=== PATIENT | female | born 1965 | race Caucasian/White ===

== ENCOUNTER 2017-06-20 15:51 | Observation (INO) ==
[2017-06-20] MEDS ORDERED: Naloxone 0.4 MG/ML INJ IVP PRN (20:32)
--- NOTE | 2017-06-20 20:45 | Internal Med History&Physical ---
<Dimitri Ledesma - Last Filed: 06/20/17 21:13> Date of Encounter: 06/20/17 Time of Encounter: 20:45 Assessment and Plan (1) Fecal impaction in rectum Current visit: Yes Status: Acute Fecal impaction per rectum on [facility] CT. Clear liquid diet. Enema TID, Golytely. While morphine administration may cause reduced gastric motility, will treat pt' s symptomatic pain along with fecal disimpaction regimen. (2) Hx of chronic kidney disease Current visit: Yes Status: Acute Hx of recurrent RENÉE, following Dr. Sullivan Current GFR >60, Creat .79 (3) HTN (hypertension) Current visit: Yes Status: Acute Continue home meds. Qualifiers: Hypertension type: unspecified Qualified Code(s): I10 - Essential (primary ) hypertension (4) Chronic asthma not affecting current episode of care Current visit: Yes Status: Acute Continue home meds. No dyspnea or symptoms this admission. (5) Depression Current visit: Yes Status: Acute On Buproprion, will continue. Qualifiers: Depression Type: unspecified Qualified Code(s): F32.9 - Major depressive disorder, single episode, unspecified Internal Medicine - H&P: HPI Admitted From: Hospital to Hospital Transfer Plans for Post Hospital Care: Home History of present illness: Ms. Price is a 51 year old female presenting as a hospital transfer from [facility] ED for worsening abdominal pain. Patient reports not having had a bowel movement in 3-4 weeks. Reports 2 episodes nausea/vomiting in the past day associated with the abdominal pain. CT in [facility] demonstrates no SBO, large fecal impaction with distention of the rectum. Pt received one enema in [facility] ED prior to transfer. Vital signs stable, no anemia on CBC, normal kidney function on BMP. Past Med Surg Social Fam HX - Past Medical History Medical history: hypertension, renal disease Psychiatric history: anxiety, depression - Past Surgical History Surgical History: appendectomy, breast surgery, , hysterectomy - Social History Smoking Status: Never smoker Smokeless Tobacco Status: No Alcohol use: none Drug use: none Internal Medicine - H&P: Meds Omeprazole [PriLOSEC] 40 mg PO BID 06/20/17 [History] Tramadol HCl [Ultram] 50 mg PO TID PRN 06/20/17 [History] diazePAM [Valium] 5 mg PO TID 06/20/17 [History] 3 Allergy/AdvReac Type Severity Reaction Status Date / Time Penicillins Allergy Hives Verified 05/25/17 12:03 Sulfa (Sulfonamide Allergy Hives Verified 05/25/17 12:03 Antibiotics) All Systems PM: A 10-system review of systems was performed and is negative for pertinent findings except as documented above in the HPI. - Constitutional Vitals: Temp Pulse Resp BP Pulse Ox 98.5 F 69 14 138/81 96 06/20/17 20:06 06/20/17 20:06 06/20/17 20:06 06/20/17 20:06 06/20/17 20:29 General appearance: Present: A&O X 3, no acute distress - Respiratory Respiratory exam: Present: CTAB - Cardiovascular Cardiovascular exam: Present: RRR, +S1, +S2 - Neurological Exam Neurological exam: Present: no focal deficits - Psychiatric Psychiatric exam: Present: normal affect, normal mood - Skin Skin exam: Present: normal color <Aldo Alexander H - Last Filed: 06/20/17 21:24> Date of Encounter: 06/20/17 Internal Medicine - H&P: HPI History of present illness: Ms. Price is a 51 year old female All Systems PM: A 10-system review of systems was performed and is negative for pertinent findings except as documented above in the HPI. - Constitutional Vitals: Temp Pulse Resp BP Pulse Ox 98.5 F 69 14 138/81 96 06/20/17 20:06 06/20/17 20:06 06/20/17 20:06 06/20/17 20:06 06/20/17 20:29 - Attending Attestation severe constipation tap water enemas TID and Golytely CKD3 time spent : 40 min I examined this patient and my medical decision-making was reviewed with the Resident Physician. I agree with the documented findings, disposition and treatment plan as described except to the extent set forth below.
[2017-06-20] MEDS ORDERED: SODIUM CHLORIDE/NAHCO3/KCL/PEG 4,000 ML SOLN.RECON PO ONE ×2 (20:46→21:10)
[2017-06-20] MEDS: diazePAM 5 MG TABLET PO SCH (22:26)
[2017-06-20] MEDS: *HR* Morphine 2 MG/ML SYRINGE IVP PRN (22:27)
[2017-06-20] MEDS: Acetaminophen 325 MG TABLET PO PRN (23:57)
[2017-06-21 05:26] LABS: Basophils % 0.6 %; Eosinophils # 0.1 K/mcL (0.0-0.6); Eosinophils % 1.8 %; Hematocrit 33.3 % (35.3-44.9); Hemoglobin 10.1 g/dL (11.5-15.4); Immature Granulocytes % 0.2 % (0-4); Lymphocytes # 2.2 K/mcL (0.6-4.6); Lymphocytes % 43.8 %; Mean Corpuscular HGB Conc 30.3 g/dL (31.6-35.5); Mean Corpuscular Hemoglobin 25.7 pg (28.0-33.3); Mean Corpuscular Volume 84.7 fL (83.0-100.0); Mean Platelet Volume 8.9 fL (9.4-12.4); Monocytes # 0.5 K/mcL (0.0-1.3); Monocytes % 9.4 %; Neutrophils # 2.2 K/mcL (1.6-8.9); Platelet Count 348 K/mcL (140-400); Red Blood Count 3.93 M/mcL (3.82-4.97); Red Cell Distribution Width 15.9 % (11.5-14.5); Segmented Neutrophils % 44.2 %
[2017-06-21] MEDS: *HR* Morphine 2 MG/ML SYRINGE IVP PRN ×2 (05:34→20:12)
[2017-06-21 05:35] LABS: BUN/Creatinine Ratio 14 (6-26); Blood Urea Nitrogen 10 mg/dL (6-20); Calcium 8.6 mg/dL (8.6-10.3); Carbon Dioxide 25 mEq/L (23-29); Chloride 109 mEq/L (98-107); Glucose 80 mg/dL (70-105); Osmolality,Calculated 290 (280-300); Potassium 3.7 mEq/L (3.5-5.1); Sodium 141 mEq/L (136-145); eGFR For African Americans > 60 (> 60); eGFR For Non-African Americans > 60 (> 60)
[2017-06-21] MEDS ORDERED: *HR* HYDROmorphone 2 MG/ML SYRINGE ONE (05:42)
[2017-06-21] MEDS: Acetaminophen 325 MG TABLET PO PRN (06:07)
[2017-06-21] MEDS: diazePAM 5 MG TABLET PO SCH ×3 (10:04→22:00)
--- NOTE | 2017-06-21 10:49 | Internal Med Progress Note ---
Date of Encounter: 06/21/17 Time of Encounter: 10:44 - Assessment and plan (1) Fecal impaction in rectum Current Visit: Yes Status: Acute Assessment and plan: presented to outside hospital with abdominal pain and no BM for 3-[address] [facility] shows stool throughout the colon with probable fecal impaction. Patient reports history of constipation, not on opiates at home. Discussed with pharmacy and tramadol is only a partial agonist therefore methotrexate own likely would not be effective. Manual dis-impaction attempted multiple times with no success. Continue GoLYTELY, and mag citrate to help with reabsorption in the colon. Strongly encouraged ambulation. Minimize opiates. Clear liquid diet. (2) Hepatic steatosis Current Visit: Yes Status: Acute Assessment and plan: [facility] CT with hepatic steatosis, and possible cholecystitis. No known liver disease. LFTs, lipase, RUQ US pending (3) Hypothyroidism (acquired) Current Visit: Yes Status: Acute Assessment and plan: per hx. Cont home levothyroxine (4) Depression Current Visit: Yes Status: Acute Assessment and plan: per hx. continue home antidepressants Qualifiers: Depression Type: unspecified Qualified Code(s): F32.9 - Major depressive disorder, single episode, unspecified (5) Anemia Current Visit: Yes Status: Acute Assessment and plan: per hx. Hgb 10.1 on arrival, baseline appears to be between 9-11. No active bleeding. Intermittently monitor H&H. Qualifiers: Anemia type: unspecified type Qualified Code(s): D64.9 - Anemia, unspecified (6) DVT prophylaxis Current Visit: Yes Status: Acute Assessment and plan: heparin - Subjective Interval history: Seen and examined at bedside. Patient is new to me, information obtained from chart review and patient report. Says she feels a little better in regards to her abdominal pain. She still has not had a bowel movement. Patient reports last BM 3-4 weeks ago. Says she gets constipated 4 weeks that time at home however she is usually able to have a bowel movement with stool softener and laxatives. Not on opiates at home. She still working on [employer]. - Constitutional Vitals: Temp Pulse Resp BP Pulse Ox 98.1 F 63 16 95/60 99 06/21/17 08:22 06/21/17 08:22 06/21/17 08:22 06/21/17 08:22 06/21/17 08:22 General appearance: Present: A&O X 3, no acute distress - Head Head exam: Present: atraumatic, normocephalic - Eye Eye exam: Present: PERRL, conjuntiva pink, sclera anicteric Pupils: Present: PERRL - Neck Neck exam general surgery: Present: supple, trachea midline. Absent: lymphadenopathy - Respiratory Respiratory exam: Present: CTAB. Absent: accessory muscle use, rales, rhonchi, wheezes - Cardiovascular Cardiovascular exam: Present: RRR, +S1, +S2. Absent: diastolic murmur, gallop, rubs, systolic murmur - GI/Abdominal GI/Abdominal exam: Present: normal bowel sounds, soft, no peritoneal signs. Absent: distended, tenderness - Extremities Exam Extremities exam: Present: warm, radial pulses palpable and symmetrical. Absent : calf tenderness, cyanotic, pedal edema - Neurological Exam Neurological exam: Present: CN II-XII intact, oriented X3, no focal deficits. Absent: pronater drift, facial droop, speech deficit - Skin Skin exam: Present: dry, intact Internal Medicine: Result - Labs CBC & Chem 7: 06/21/17 05:04 06/21/17 05:04 Labs: Short CBC 06/21/17 Range/Units 05:04 WBC 5.0 (4.3-11.1) K/mcL Hgb 10.1 L (11.5-15.4) g/dL Hct 33.3 L (35.3-44.9) % Plt Count 348 (140-400) K/mcL Neutrophils # 2.2 (1.6-8.9) K/mcL BMP 06/21/17 05:04 Sodium 141 Potassium 3.7 Chloride 109 H Carbon Dioxide 25 BUN 10 Creatinine 0.73 Glucose 80 Calcium 8.6 Consult Discharge Plan - Plan Referrals: Daisy Dexter CNP [Primary Care Provider] -
[2017-06-21 11:11] LABS: Alanine Aminotransferase 37 Units/L (7-52); Albumin/Globulin Ratio 1.3 (1.1-2.2); Alkaline Phosphatase 45 Units/L (34-104); Aspartate Amino Transferase 64 Units/L (13-39); Bilirubin,Indirect 0.4 mg/dL (0.0-1.2); Bilirubin,Total 0.4 mg/dL (0.3-1.0); Globulin 2.4 g/dL (2.4-3.5); Lipase 13 Units/L (11-82); Total Protein 5.4 g/dL (6.4-8.9)
[2017-06-21] MEDS: Ondansetron ODT 4 MG TAB.RAPDIS SL PRN (11:37)
[2017-06-21] MEDS: *HR* Heparin 5,000 UNIT/ML VIAL SQ SCH ×2 (14:17→22:00)
[2017-06-21] MEDS ORDERED: Polyethylene Glycol 3350 255 GM POWDER PO ONE (17:42)
[2017-06-21] MEDS: BuPROPion SR (12 HR) 150 MG TABLET PO SCH (22:00)
[2017-06-21] MEDS ORDERED: GI Cocktail 40 ML EACH PO ONE (22:52)
[2017-06-22] MEDS: *HR* Morphine 2 MG/ML SYRINGE IVP PRN ×3 (00:47→18:47)
[2017-06-22] MEDS ORDERED: *HR* Promethazine 25 MG/ML VIAL IVP ONE (01:04)
[2017-06-22] MEDS: Levothyroxine 25 MCG TABLET PO SCH (05:48)
[2017-06-22] MEDS: *HR* Heparin 5,000 UNIT/ML VIAL SQ SCH ×3 (06:23→23:06)
[2017-06-22 06:48] LABS: Hematocrit 35.5 % (35.3-44.9); Mean Corpuscular Volume 83.9 fL (83.0-100.0); Platelet Count 351 K/mcL (140-400); Red Blood Count 4.23 M/mcL (3.82-4.97)
[2017-06-22 07:38] LABS: BUN/Creatinine Ratio 13 (6-26); Blood Urea Nitrogen 9 mg/dL (6-20); Calcium 8.8 mg/dL (8.6-10.3); Carbon Dioxide 23 mEq/L (23-29); Chloride 107 mEq/L (98-107); Glucose 89 mg/dL (70-105); Osmolality,Calculated 288 (280-300); Potassium 4.2 mEq/L (3.5-5.1); Sodium 140 mEq/L (136-145); eGFR For African Americans > 60 (> 60); eGFR For Non-African Americans > 60 (> 60)
--- NOTE | 2017-06-22 08:35 | Internal Med Progress Note ---
Date of Encounter: 06/22/17 Time of Encounter: 08:30 - Assessment and plan (1) Fecal impaction in rectum Current Visit: Yes Status: Acute Assessment and plan: Multiple disimpaction methods have not worked. Seems to have a chronic issue. We will consult GI. I will add magnesium citrate and try Dulcolax suppository today. (2) Hypothyroidism (acquired) Current Visit: Yes Status: Acute Assessment and plan: per hx. Cont home levothyroxine (3) Hepatic steatosis Current Visit: Yes Status: Acute Assessment and plan: [facility] with hepatic steatosis, and possible cholecystitis. No known liver disease. LFTs, lipase, RUQ US pending (4) DVT prophylaxis Current Visit: Yes Status: Acute Assessment and plan: heparin - Subjective Interval history: No acute events. The patient continues have severe constipation. She was only able to have a very small/tiny piece of stool last night. She is having significant rectal pain. She says she usually goes about 2-4 weeks without a bowel movement like that all of her life. Her mother used to be like as well. - Constitutional Vitals: Temp Pulse Resp BP Pulse Ox 98.0 F 72 16 108/67 97 06/22/17 07:35 06/22/17 07:35 06/22/17 07:35 06/22/17 07:35 06/22/17 07:35 General appearance: Present: A&O X 3, no acute distress Exam: GEN: NAD CVS: RRR. S1, S2, No m/r/g RESP: CTAB ABD: Soft, NT, ND, hypoactive bowel sounds EXT: No edema. 2+ DP. No rashes NEURO: Nonfocal Internal Medicine: Result - Labs CBC & Chem 7: 06/22/17 06:35 06/22/17 06:35 Labs: Short CBC 06/22/17 Range/Units 06:35 WBC 6.5 (4.3-11.1) K/mcL Hgb 11.0 L (11.5-15.4) g/dL Hct 35.5 (35.3-44.9) % Plt Count 351 (140-400) K/mcL BMP 06/21/17 06/22/17 05:04 06:35 Sodium 141 140 Potassium 3.7 4.2 Chloride 109 H 107 Carbon Dioxide 25 23 BUN 10 9 Creatinine 0.73 0.68 Glucose 80 89 Calcium 8.6 8.8 Liver Function 06/21/17 Range/Units 05:04 Total Bilirubin 0.4 (0.3-1.0) mg/dL Direct Bilirubin 0.0 (0.0-0.2) mg/dL AST 64 H (13-39) Units/L ALT 37 (7-52) Units/L Alkaline Phosphatase 45 (34-104) Units/L Albumin 3.0 L (3.5-5.7) g/dL Consult Discharge Plan - Plan Referrals: Daisy Dexter, COURTNEY [Primary Care Provider] -
[2017-06-22] MEDS: Ondansetron ODT 4 MG TAB.RAPDIS SL PRN (09:28)
[2017-06-22] MEDS: diazePAM 5 MG TABLET PO SCH ×3 (09:29→22:07)
--- NOTE | 2017-06-22 11:06 | Internal Med Progress Note ---
Date of Encounter: 06/22/17 Time of Encounter: 11:00 - Assessment and plan (1) Fecal impaction in rectum Current Visit: Yes Status: Acute Assessment and plan: Multiple disimpaction methods have not worked. She is not interested in any attempts with manual disimpaction. She is having significant rectal pain. Seems to have a chronic issue. We will consult surgery as GI is not available. I was hoping would be able to disimpact the patient under anesthesia possibly in the scope suite. I will add magnesium citrate and try Dulcolax suppository today but she seems to have given up on trying anything orally. (2) Hypothyroidism (acquired) Current Visit: Yes Status: Acute (3) Hepatic steatosis Current Visit: Yes Status: Acute (4) DVT prophylaxis Current Visit: Yes Status: Acute - Subjective Interval history: No acute events. The patient continues have severe constipation. She was only able to have a very small/tiny piece of stool last night. She is having significant rectal pain. She is not interested in any attempts with manual disimpaction. She says she usually goes about 2-4 weeks without a bowel movement like that all of her life. Her mother used to be like as well. - Constitutional Vitals: Temp Pulse Resp BP Pulse Ox 98.0 F 72 16 108/67 97 06/22/17 07:35 06/22/17 07:35 06/22/17 07:35 06/22/17 07:35 06/22/17 07:35 General appearance: Present: A&O X 3, no acute distress Internal Medicine: Result - Labs CBC & Chem 7: 06/22/17 06:35 06/22/17 06:35 Labs: Short CBC 06/22/17 Range/Units 06:35 WBC 6.5 (4.3-11.1) K/mcL Hgb 11.0 L (11.5-15.4) g/dL Hct 35.5 (35.3-44.9) % Plt Count 351 (140-400) K/mcL BMP 06/22/17 06:35 Sodium 140 Potassium 4.2 Chloride 107 Carbon Dioxide 23 BUN 9 Creatinine 0.68 Glucose 89 Calcium 8.8 Liver Function 06/21/17 Range/Units 05:04 Total Bilirubin 0.4 (0.3-1.0) mg/dL Direct Bilirubin 0.0 (0.0-0.2) mg/dL AST 64 H (13-39) Units/L ALT 37 (7-52) Units/L Alkaline Phosphatase 45 (34-104) Units/L Albumin 3.0 L (3.5-5.7) g/dL Consult Discharge Plan - Plan Referrals: Daisy Dexter CNP [Primary Care Provider] -
[2017-06-22] MEDS: Bisacodyl 10 MG RECTAL SUPPOSITORY RC SCH ×2 (12:00→22:07)
[2017-06-22] MEDS: BuPROPion SR (12 HR) 150 MG TABLET PO SCH ×2 (12:00→22:07)
--- NOTE | 2017-06-22 12:57 | General Surgery Consult Note ---
<Jesse Dawson - Last Filed: 06/22/17 12:52> Date of Encounter: 06/22/17 Time of Encounter: 12:52 Assessment and Plan (1) Functional constipation Current Visit: Yes Status: Acute Functional constipation vs Rx induced constipation vs previously undiagnosed Hirschsprung disease. 4 week history of constipation per patient. Patient is currently stable. per chart review, patient is not interested in digital disimpactment. Will attempt medical treatment first, if mg citrate and sitz bath fails, recommend transfer to ICU for neostigmine administration. If all attempts fail, will consider sphincterotomy. - recommend GI consult - Mg Citrate for BM + Sitz Bath for relaxation of internal anal sphincter ordered - encouraged patient to be more compliant with recommendations (2) Anal fissure Current Visit: Yes Status: Acute On physical exam, patient had severe pain during digital rectal exam. Patient had hard compacted stools in rectal vault. - sitz baths History of Present Illness Consult date: 06/22/17 Reason for consult: other (chronic constipation) Requesting physician: Nixon Romero History of present illness: 51 year old female presents with chronic constipation. Patient wa recently evaluated at [facility] ED and then transferred to [place] for "second opinion". Patient states she has not had a bowel movement in 4 weeks. She feels like she needs to have a bowel movement but is unable to due to pain in her anus. Patient reports feeling nauseas and vomits following eating. She has had constipation issues since she was a child. She reports her mother had similar issues but does not know much else about her mother. per chart review CT was performed at [facility] that demonstrated no SBO, large fecal impaction with diestension of the rectum. Pt received enea in [facility] ED prior to transfer to [place]. Patient takes no medications at home for her constipation. She has a history of anxiety and depression in which she takes valium and an unknown antidepressant. Patient denies fever, chills, diarrhea or blood stools. Patient states that her stool is too large for digital disimpactment. Patient states that she has attempted miralax but is unable to finish it because she gets nauseous and vomits. Past Med Surg Social Fam HX - Past Medical History Medical history: hypertension, renal disease Psychiatric history: anxiety, depression - Past Surgical History Surgical History: appendectomy, breast surgery, , hysterectomy - Social History Smoking Status: Never smoker Smokeless Tobacco Status: No Alcohol use: none Drug use: none Medications and Allergies Omeprazole [PriLOSEC] 40 mg PO BID 06/20/17 [History] Tramadol HCl [Ultram] 50 mg PO TID PRN 06/20/17 [History] diazePAM [Valium] 5 mg PO TID 06/20/17 [History] BuPROPion SR (12 HR) [Wellbutrin SR] 150 mg PO BID 06/21/17 [History] Levothyroxine Sodium 25 mcg PO DAILY 06/21/17 [History] 3 Allergy/AdvReac Type Severity Reaction Status Date / Time Amoxicillin Allergy Rash Verified 06/21/17 08:19 cephalexin Allergy Rash Verified 06/21/17 08:19 Sulfa (Sulfonamide Allergy Hives Verified 05/25/17 12:03 Antibiotics) Penicillins AdvReac Vomiting Verified 06/21/17 08:19 Review of Systems All systems PM: A 10-system review of systems was performed and is negative for pertinent findings except as documented above in the HPI. - Constitutional as per HPI - EENT Nose, mouth and throat: as per HPI - Cardiovascular as per HPI - Respiratory as per HPI - Gastrointestinal as per HPI - Genitourinary Genitourinary: as per HPI Menstruation: as per HPI - Musculoskeletal as per HPI - Integumentary as per HPI - Neurological as per HPI - Psychiatric as per HPI - Endocrine as per HPI - Hematologic/Lymphatic as per HPI - Allergic/Immunologic as per HPI General Surgery Exam Initial Vital Signs Temp Pulse Resp BP Pulse Ox 98.3 F 79 14 159/84 97 06/20/17 17:43 06/20/17 17:43 06/20/17 17:43 06/20/17 17:43 06/20/17 17:43 - General physical appearance well developed, well nourished, no distress, moderate pain - Eyes normal ocular movement. negative: icteric - Rectum Rectum: Present: normal sphincter tone, no hemorrhoids, mass (large stool mass in rectal vault), other (possible fissure) - Integumentary Integumentary general surgery: Present: warm and dry, no abnormal pigmentation - Neurologic Present: CN 2-12 grossly intact, normal coordination, normal sensation - Psychiatric Psychiatric general surgery: Present: appropriate, oriented to person, oriented to place, oriented to time, speech is normal, memory intact Exam Initial Vital Signs Temp Pulse Resp BP Pulse Ox 98.3 F 79 14 159/84 97 06/20/17 17:43 06/20/17 17:43 06/20/17 17:43 06/20/17 17:43 06/20/17 17:43 Results - Labs 06/22/17 06:35 06/22/17 06:35 Abnormal lab results Hgb 11.0 g/dL (11.5-15.4) L 06/22/17 06:35 MCH 26.0 pg (28.0-33.3) L 06/22/17 06:35 MCHC 31.0 g/dL (31.6-35.5) L 06/22/17 06:35 RDW 16.0 % (11.5-14.5) H 06/22/17 06:35 MPV 9.0 fL (9.4-12.4) L 06/22/17 06:35 AST 64 Units/L (13-39) H 06/21/17 05:04 Serum Total Protein 5.4 g/dL (6.4-8.9) L 06/21/17 05:04 Albumin 3.0 g/dL (3.5-5.7) L 06/21/17 05:04 Diabetes panel 06/22/17 Range/Units 06:35 Sodium 140 (136-145) mEq/L Potassium 4.2 (3.5-5.1) mEq/L Chloride 107 (98-107) mEq/L Carbon Dioxide 23 (23-29) mEq/L BUN 9 (6-20) mg/dL Creatinine 0.68 (0.60-1.20) mg/dL Glucose 89 (70-105) mg/dL Calcium 8.8 (8.6-10.3) mg/dL Calcium panel 06/22/17 Range/Units 06:35 Calcium 8.8 (8.6-10.3) mg/dL Pituitary panel 06/22/17 Range/Units 06:35 Sodium 140 (136-145) mEq/L Potassium 4.2 (3.5-5.1) mEq/L Chloride 107 (98-107) mEq/L Carbon Dioxide 23 (23-29) mEq/L BUN 9 (6-20) mg/dL Creatinine 0.68 (0.60-1.20) mg/dL Glucose 89 (70-105) mg/dL Calcium 8.8 (8.6-10.3) mg/dL Adrenal panel 06/22/17 Range/Units 06:35 Sodium 140 (136-145) mEq/L Potassium 4.2 (3.5-5.1) mEq/L Chloride 107 (98-107) mEq/L Carbon Dioxide 23 (23-29) mEq/L BUN 9 (6-20) mg/dL Creatinine 0.68 (0.60-1.20) mg/dL Glucose 89 (70-105) mg/dL Calcium 8.8 (8.6-10.3) mg/dL All other labs normal. Consult Discharge Plan - Plan Referrals: Daisy Dexter CNP [Primary Care Provider] - <Corey Foote - Last Filed: 06/23/17 10:28> Date of Encounter: 06/22/17 Review of Systems All systems PM: A 10-system review of systems was performed and is negative for pertinent findings except as documented above in the HPI. General Surgery Exam Initial Vital Signs Temp Pulse Resp BP Pulse Ox 98.3 F 79 14 159/84 97 06/20/17 17:43 06/20/17 17:43 06/20/17 17:43 06/20/17 17:43 06/20/17 17:43 Exam Initial Vital Signs Temp Pulse Resp BP Pulse Ox 98.3 F 79 14 159/84 97 06/20/17 17:43 06/20/17 17:43 06/20/17 17:43 06/20/17 17:43 06/20/17 17:43 Results - Labs 06/22/17 06:35 06/22/17 06:35 Abnormal lab results Hgb 11.0 g/dL (11.5-15.4) L 06/22/17 06:35 MCH 26.0 pg (28.0-33.3) L 06/22/17 06:35 MCHC 31.0 g/dL (31.6-35.5) L 06/22/17 06:35 RDW 16.0 % (11.5-14.5) H 06/22/17 06:35 MPV 9.0 fL (9.4-12.4) L 06/22/17 06:35 AST 64 Units/L (13-39) H 06/21/17 05:04 Serum Total Protein 5.4 g/dL (6.4-8.9) L 06/21/17 05:04 Albumin 3.0 g/dL (3.5-5.7) L 06/21/17 05:04 All other labs normal. - Attending Attestation I examined this patient and my medical decision-making was reviewed with the Resident Physician. I agree with the documented findings, disposition and treatment plan as described except to the extent set forth below. The patient is seen and evaluated with the resident. She has chronic constipation. She has had constipation her entire life. She has been greater than 14 days without a bowel movement. CAT scan demonstrates a solid column of stool from the anus to the cecum. She has crampy abdominal pain and complaining bitterly of anal pain. On physical examination her rectal vault is full of soft stool. This should respond to washout therapy from above. We can use Gatorade and MiraLAX or magnesium citrate. I do not think that she will require manual disimpaction. She does have a good deal of anal pain and may have anal fissure. I have also recommended sitz bath therapy to assist with relaxation of the internal anal sphincter. We will be glad to follow along with you. She will require daily therapy with psyllium as well as milk of magnesia or magnesium citrate if she goes more than 48 hours without a bowel movement. If these measures fail neostigmine therapy may be required. Gastroenterology consultation is also recommended for chronic functional constipation Corey Foote MD FACS
[2017-06-23] MEDS: Levothyroxine 25 MCG TABLET PO SCH (06:30)
[2017-06-23] MEDS: *HR* Heparin 5,000 UNIT/ML VIAL SQ SCH ×3 (06:44→21:54)
[2017-06-23] MEDS: BuPROPion SR (12 HR) 150 MG TABLET PO SCH ×2 (09:10→21:56)
[2017-06-23] MEDS: diazePAM 5 MG TABLET PO SCH ×3 (09:11→21:56)
--- NOTE | 2017-06-23 10:23 | General Surgery Progress Note ---
<Marycruz Hartman - Last Filed: 06/23/17 11:00> Date of Encounter: 06/23/17 Time of Encounter: 09:15 - Assessment and Plan (1) Functional constipation Current Visit: Yes Status: Acute Patient reported having a bowel movement with 3 hard stools and then loose stools. Her last colonscopy was at 41yo and she is now 51 and due for another colonoscopy outpatient Patient was instructed to regularly supplement her diet with Wal-mucil to promote the formation of large soft stool. She was also advised to take regular sitz baths until resolution of her anal pain. If bowel movements do not occur within an interval of 48 hours, patient was instructed to take 2 tbsp of Magnesium citrate. Patient was advised to continue encouraging bowel movements and follow up with gastroenterology for evaluation. Patient understood and agreed to all recommendations without further questions. magnesium citrate this AM and afternoon continue sitz baths recommend gastroenterology to see patient about chronic constipation (2) Anal fissure Current Visit: Yes Status: Acute Patient was advised to take regular sitz baths and wal-mucil supplements to alleviate anal pain. Patient was instructed to strictly monitor bowel movement schedule and encouraged to take 2TBSP milk of magnesia q12h if bowel movements did not occur every 48 hours. Patient understood these recommendations and acknowledged that her symptoms would worsen if she did not ensure regular bowel movement schedule. Subjective Patient reports: no new complaints, feels better, pain is less Narrative: Patient reports initially passing three painful hard stools followed by large volumes of loose stool. She has no other complaints. Objective Vital Signs - Last 8 Hours Temp Pulse Resp BP Pulse Ox 06/23/17 08:12 97.6 F 64 18 106/67 97 06/23/17 04:24 97.8 F 66 16 103/69 98 Intake and Output 06/22/17 06/23/17 06/23/17 23:59 07:59 15:59 Intake Total 120 / 120 240 / 240 Balance 120 / 120 240 / 240 Intake: Oral 120 / 120 240 / 240 Other: Meal Dinner Breakfast Percent of Meal Consumed 50% 90% Stool Size Small Small Moderate Stool Consistency loose loose liquid liquid formed Stool Characteristics Normal for Patient Stool Color Brown Brown Brown Yellow Green # Bowel Movements 1 1 Weight 60.419 kg Patient Weight 06/23/17 23:59 Weight 60.419 kg - General physical appearance well developed, well nourished, no distress - Eyes normal ocular movement - ENT normal nares - Integumentary no abnormal pigmentation - Neurologic CN 2-12 grossly intact - Psychiatric oriented to time, oriented to person, oriented to place - Labs 06/22/17 06:35 06/22/17 06:35 Consult Discharge Plan - Plan Referrals: Daisy Dexter, [employer] [Primary Care Provider] - <Corey Foote - Last Filed: 06/23/17 14:48> Date of Encounter: 06/23/17 Objective Vital Signs - Last 8 Hours Temp Pulse Resp BP Pulse Ox 06/23/17 12:02 98.4 F 89 18 120/80 99 06/23/17 08:12 97.6 F 64 18 106/67 97 Intake and Output 06/22/17 06/23/17 06/23/17 23:59 07:59 15:59 Intake Total 120 / 120 240 / 240 Balance 120 / 120 240 / 240 Intake: Oral 120 / 120 240 / 240 Other: Meal Dinner Lunch Percent of Meal Consumed 50% 10% Stool Size Small Small Moderate Stool Consistency loose loose liquid liquid formed Stool Characteristics Normal for Patient Stool Color Brown Brown Brown Yellow Green # Bowel Movements 1 1 Weight 60.419 kg Patient Weight 06/23/17 23:59 Weight 60.419 kg - Labs 06/22/17 06:35 06/22/17 06:35 - Attending Attestation I examined this patient and my medical decision-making was reviewed with the Resident Physician. I agree with the documented findings, disposition and treatment plan as described except to the extent set forth below. The patient is seen and evaluated with the resident on morning rounds. She has successfully started having bowel movements. This is a combination of internal anal sphincter relaxation using sitz bath and magnesium citrate therapy from above to promote high-volume liquid stools. The stool burden in the colon is quite extensive. I would continue with magnesium citrate this morning and this afternoon as well as sitz baths to promote internal anal sphincter relaxation. I have recommended gastroenterology evaluation for long-standing adult constipation. In the absence of other therapies, recommended psyllium supplementation on a daily basis with milk of magnesia 30 mL every 12 hours if she does not have a bowel movement for 48 hours. We will sign off at this point. Corey Foote MD FACS
--- NOTE | 2017-06-23 12:14 | Internal Med Progress Note ---
Date of Encounter: 06/23/17 Time of Encounter: 07:25 - Assessment and plan (1) Fecal impaction in rectum Current Visit: Yes Status: Acute Assessment and plan: Appreciate surgery's help. They would like to keep the patient for at least another day to achieve complete cleansing of the colon. We will leave that management up to them. I will have GI take a look at her tomorrow before she is discharged. (2) Anal fissure Current Visit: Yes Status: Acute Assessment and plan: From significant straining. Surgery have her doing sitz baths. (3) Hypothyroidism (acquired) Current Visit: Yes Status: Acute Assessment and plan: per hx. Cont home levothyroxine (4) Hepatic steatosis Current Visit: Yes Status: Acute Assessment and plan: Thao ABD CT with hepatic steatosis, and possible cholecystitis. No known liver disease. LFTs, lipase, RUQ US pending (5) DVT prophylaxis Current Visit: Yes Status: Acute Assessment and plan: heparin - Subjective Interval history: Patient seen and examined. She was able to have multiple bowel movements. She does have pain in the anal/rectal area is significantly improved. She was seen by surgery and their help is appreciated. - Constitutional Vitals: Temp Pulse Resp BP Pulse Ox 98.4 F 89 18 120/80 99 06/23/17 12:02 06/23/17 12:02 06/23/17 12:02 06/23/17 12:02 06/23/17 12:02 General appearance: Present: A&O X 3, no acute distress Exam: GEN: NAD CVS: RRR. S1, S2, No m/r/g RESP: CTAB ABD: Soft, NT, ND, +BS EXT: No edema. 2+ DP. No rashes NEURO: Nonfocal Internal Medicine: Result - Labs CBC & Chem 7: 06/22/17 06:35 06/22/17 06:35 Consult Discharge Plan - Plan Referrals: Daisy Dexter CNP [Primary Care Provider] -
[2017-06-23] MEDS: Lidocaine OINT 35.44 GM TUBE TP SCH (18:35)
[2017-06-23] MEDS: Bisacodyl 10 MG RECTAL SUPPOSITORY RC SCH (21:54)
[2017-06-23] MEDS: *HR* Morphine 2 MG/ML SYRINGE IVP PRN (23:03)
[2017-06-24] MEDS: *HR* Heparin 5,000 UNIT/ML VIAL SQ SCH ×2 (05:39→14:12)
[2017-06-24] MEDS: Levothyroxine 25 MCG TABLET PO SCH (05:40)
[2017-06-24] MEDS ORDERED: Sennosides/Docusate Sodium TABLET PO PRN (07:48)
[2017-06-24] MEDS: *HR* Morphine 2 MG/ML SYRINGE IVP PRN (08:10)
[2017-06-24] MEDS: BuPROPion SR (12 HR) 150 MG TABLET PO SCH (08:10)
[2017-06-24] MEDS: diazePAM 5 MG TABLET PO SCH ×2 (08:10→14:12)
[2017-06-24] MEDS: Lidocaine OINT 35.44 GM TUBE TP SCH (08:11)
--- NOTE | 2017-06-24 12:46 | Discharge Summary ---
Date of Encounter: 06/24/17 Time of Encounter: 07:35 - Discharge Diagnosis (1) Fecal impaction in rectum Priority: Primary Status: Acute (2) Anal fissure Priority: Primary Status: Acute (3) Hypothyroidism (acquired) Priority: Secondary Status: Acute (4) Hepatic steatosis Priority: Secondary Status: Acute - Discharge Medications Prescriptions: Polyethylene Glycol 3350 [MiraLAX] 17 gm PO BID #10 powd.pack Sennosides/Docusate Sodium [Senna Plus] 2 each PO BID PRN #60 tablet PRN Reason: Constipation Home Medications: Omeprazole [PriLOSEC] 40 mg PO BID 06/20/17 [History] Tramadol HCl [Ultram] 50 mg PO TID PRN 06/20/17 [History] diazePAM [Valium] 5 mg PO TID 06/20/17 [History] BuPROPion SR (12 HR) [Wellbutrin SR] 150 mg PO BID 06/21/17 [History] Levothyroxine Sodium 25 mcg PO DAILY 06/21/17 [History] Polyethylene Glycol 3350 [MiraLAX] 17 gm PO BID #10 powd.pack 06/24/17 [Rx] Sennosides/Docusate Sodium [Senna Plus] 2 each PO BID PRN #60 tablet 06/24/17 [ Rx] Allergies/Adverse Reactions: 3 Allergy/AdvReac Type Severity Reaction Status Date / Time Amoxicillin Allergy Rash Verified 06/21/17 08:19 cephalexin Allergy Rash Verified 06/21/17 08:19 Sulfa (Sulfonamide Allergy Hives Verified 05/25/17 12:03 Antibiotics) Penicillins AdvReac Vomiting Verified 06/21/17 08:19 Procedures/tests Complete & Pending: Procedures Performed prior 72 hours Category Date Time Status US abdomen limited [US] Stat Exams 06/22/17 09:30 Ordered Date of admission: 06/20/17 17:21 Primary care physician: Daisy Dexter, Consults: 06/22/17 08:31 Consult to Gastroenterology [CONS] Routine Consulting Provider: Gastroenterology Nora Reason for Consult: fecal impaction. failed multiple methods to disimpact Call Completed: No 06/22/17 11:00 Consult to Surgery [CONS] Routine Consulting Provider: Surgery [facility] Reason for Consult: fecal impaction Call Completed: Yes 06/24/17 07:46 Consult to Gastroenterology [CONS] Routine Consulting Provider: Gastroenterology Nora Reason for Consult: chronic constipation. Was going to see Dr. Pollard in office. Has not had a bowel movement for 4 weeks. Now she is emptied after multiple different attempts. Please establish care before discharge. Call Completed: No - Patient Status Disposition: Home, Self-Care Condition: Fair Overall status at discharge: patient is progressing back to baseline - Discharge Instructions Instructions: Polyethylene Glycol 3350 (By mouth), Laxative, Stimulant Combination (By mouth), Fecal Impaction (GEN) Follow Up With: Daisy Dexter CNP [Primary Care Provider] - Roger Pollard MD [Partnered Physician] - 07/16/17 3:00 pm () - Diet and Activity Activity: increase activity as tolerated Hospital course: Ms. Price is a 51 year old female presenting as a hospital transfer from [facility] ED for worsening abdominal pain. Patient reports not having had a bowel movement in 3-4 weeks. Reports 2 episodes nausea/vomiting in the past day associated with the abdominal pain. CT in [facility] demonstrates no SBO, large fecal impaction with distention of the rectum. Pt received one enema in [facility] ED prior to transfer. She was admitted under the hospitalist service. Manual disimpaction failed. Multiple attempts at enemas as well as oral laxatives failed. I ended up consulting with surgery who came and continued conservative management with laxatives and she was able to have multiple bowel movements. GI was not available so we can and I ended up consult with GI on Saturday the day of her discharge to establish care. They recommended continuing with MiraLAX and senna at discharge. She was stable for discharge on 06/24/2017. She did have significant rectal/anal pain from the straining and sitz baths were recommended for surgery. She will follow up with GI as well as her primary care physician. She was advised on increasing her fiber intake. - Time Spent with Patient Total time spent providing and/or coordinating discharge services: Greater than 30 minutes - Constitutional Vitals: Temp Pulse Resp BP Pulse Ox 98.9 F 89 16 121/77 98 06/24/17 08:10 06/24/17 08:10 06/24/17 08:10 06/24/17 08:10 06/24/17 08:10 General appearance: Present: A&O X 3, no acute distress Exam: GEN: NAD CVS: RRR. S1, S2, No m/r/g RESP: CTAB ABD: Soft, NT, ND, +BS EXT: No edema. 2+ DP. No rashes NEURO: Nonfocal
[2017-06-24 13:10] VITALS: BP 110/74
--- NOTE | 2017-06-24 14:02 | Gastroenterology Consult Note ---
Date of Encounter: 06/24/17 Time of Encounter: 12:30 - Assessment and plan (1) Functional constipation Current Visit: Yes Status: Acute Assessment and plan: She has received mag citrate, and had 7 BMs since admission. Recommend changing Dulcolax to Miralax BID. Start daily fiber supplement. Continue Senna. Goal of 3 -4 BMs per week. Follow up with GI as outpatient in 1-2 weeks. - Time Spent With Patient Total time spent is greater than 50% in coordination of care (as documented) at patient's floor/unit and/or counseling patient: GI History of Present Illness - Data of Consult Patient: new to practice Consult date: 06/24/17 Requesting Physician: Tamar Valente MD - Consult Narrative Reason for consult: Constipation History of present illness: Ms. Price is a 51 year old female with PMHx of HTN, renal disease who presented with chronic constipation. She was evaluated at [facility] ED and transferred to [place] for second opinion. She had not had BM in 4 weeks. She felt like she needed to have a BM but was unable due to pain in her anus. Patient reports feeling nauseas and vomits following eating. She has had constipation issues since she was a child, but takes no medication for her constipation. CT was performed at [facility] that demonstrated no SBO, large fecal impaction with distension of the rectum. Pt received enema in [facility] ED prior to transfer to [place] where she has received mag citrate and has had 7 BMs since admission. She denies fever, chills, chest pain, shortness of breath, diarrhea, hematochezia, or melena. She denies sitting on toilet for extended periods of time or using her fingers to assist having a BM. Procedures: Colonoscopy 10/19/2011 Dr. Wyatt: Melanosis in colon, mild patchy nonspecific inflammation, repeat in 7 years. EGD 04/20/2011 Dr. Wyatt: Normal EGD 04/17/2010 Dr. Sanderson: LA Grade C reflux esophagitis, hiatus hernia, acute gastritis NSAIDs: None Anticoagulation: None Past Med Surg Social Fam HX - Past Medical History Medical history: hypertension, renal disease Psychiatric history: anxiety, depression - Past Surgical History Surgical History: appendectomy, breast surgery, , hysterectomy - Social History Smoking Status: Never smoker Smokeless Tobacco Status: No Alcohol use: none Drug use: none - Gastrointestinal Gastrointestinal: Present: as per HPI - Constitutional Constitutional: as per HPI - EENT Eyes: as per HPI Ears: Present: as per HPI Nose, mouth and throat: Present: as per HPI - Cardiovascular Cardiovascular ROS: Present: as per HPI - Respiratory Respiratory IM: Present: as per HPI - Genitourinary Genitourinary: Absent: change in color, Urinary frequency - Neurological ROS Neurological GI: Present: as per HPI - Hematologic/Lymphatic Hematologic/Lymphatic pediatric: Present: as per HPI - Musculoskeletal Musculoskeletal ROS GI: Present: as per HPI - Integumentary Integumentary GI: Present: as per HPI - Psychiatric ROS Psychiatric GI: Present: as per HPI - Endocrine Endocrine IM: Present: as per HPI - Constitutional Vitals: Temp Pulse Resp BP Pulse Ox 98.1 F 84 16 110/74 99 06/24/17 11:45 06/24/17 11:45 06/24/17 11:45 06/24/17 11:45 06/24/17 11:45 General appearance: Present: cooperative, A&O X 3, no acute distress, answers questions appropriately - Head Head exam: Present: atraumatic, normocephalic - Eye Eye exam: Present: normal appearance, sclera anicteric - ENT ENT exam: Present: mucous membranes moist - Neck Neck exam general surgery: Present: normal inspection, trachea midline - Respiratory Respiratory exam: Present: CTAB. Absent: rales, rhonchi - Cardiovascular Cardiovascular exam: Present: RRR, +S1, +S2 - GI/Abdominal GI/Abdominal exam: Present: soft, no peritoneal signs. Absent: distended, firm , guarding, tenderness - Rectal Rectal exam: Present: deferred - Extremities Exam Extremities exam: Present: warm - Neurological Exam Neurological exam: Present: no focal deficits - Psychiatric Psychiatric exam: Present: normal affect, normal mood - Skin Skin exam: Present: dry, intact, normal color, warm Results - Labs CBC & Chem 7: 06/22/17 06:35 06/22/17 06:35 Labs: Last Result Calcium 8.8 mg/dL (8.6-10.3) 06/22/17 06:35 Entire Visit Hgb 11.0 g/dL (11.5-15.4) L 06/22/17 06:35 Hct 35.5 % (35.3-44.9) 06/22/17 06:35 Total Bilirubin 0.4 mg/dL (0.3-1.0) 06/21/17 05:04 AST 64 Units/L (13-39) H 06/21/17 05:04 ALT 37 Units/L (7-52) 06/21/17 05:04 Lipase 13 Units/L (11-82) 06/21/17 05:04 Consult Discharge Plan - Plan Instructions: Polyethylene Glycol 3350 (By mouth), Laxative, Stimulant Combination (By mouth), Fecal Impaction (GEN) Referrals: Daisy Dexter CNP [Primary Care Provider] - Roger Pollard MD [Partnered Physician] - 07/16/17 3:00 pm () Prescriptions: Polyethylene Glycol 3350 [MiraLAX] 17 gm PO BID #10 powd.pack Sennosides/Docusate Sodium [Senna Plus] 2 each PO BID PRN #60 tablet PRN Reason: Constipation
== END 2017-06-24 14:31 | disposition home or self-care (01) ==
LOC: 3ANU → 1NENUPED 06-21 19:24
PROVIDERS: ADMIT Pediatrics; ATTEND Student in an Organized Health Care Education/Training Program